=== PATIENT | female | born 1985 | race Caucasian/White ===

== ENCOUNTER 2023-12-14 07:39 | Inpatient (IN) ==
[2023-12-14] MEDS ORDERED: LIDOCAINE 1% LOCAL 20 ML VIAL INFIL PRN (07:47)
[2023-12-14] MEDS ORDERED: Patient's HEIGHT &/or WEIGHT Needed SCH (08:00)
--- NOTE | 2023-12-14 08:01 | History & Physical Report ---
Date of Service December 14, 2023 Assessment & Plan (1) Insulin controlled gestational diabetes mellitus (GDM) during : (2) Need for rhogam due to Rh negative mother: (3) Carrier of group B Streptococcus: (4) Hepatitis C virus infection cured after antiviral drug therapy: (5) Encounter for induction of labor: Plan 38yo at 39 weeks of gestational here for induction of labor - GBS +: abx intrapartum - Pitocin as protocol - Epidural when requested - BTG: A- [place] post delivery - Arom if need it - FHT: category 1 - Anticipate Admission and Anticipated Discharge Date Admission Date: December 14, 2023 History of Present Illness Primary Care Provider: NO PCP 38yo at 39 weeks of gestational. Here for induction of labor. Melgoza bulb was placed last night. Complications with this include GDM ins ulin controlled, LGA, AMA, hx of hepatitis C, suspected LGA. Has been attending OB appointments regularly. Currently taking no medications. GBS +, Rubella immune, BTG: A- Contractions: none. Fluid or Blood loss: none Movement: active FHR baseline 145, moderate variability, accelerations present, decelerations absent OB Labs: Blood Type A Negative 05/14/23 Antibody Screen NEGATIVE 09/28/23 Hemoglobin 11.8 g/dl (12.0-16.0) L 09/28/23 Hematocrit 34.8 % (37.0-47.0) L 09/28/23 Mean Corpuscular Volume 89.2 fL (80.0-100.0) 05/14/23 Platelet Count 365 K/uL (130-400) 05/14/23 Rubella IgG Antibody Immune (Immune) 05/14/23 Rapid Plasma Reagin Nonreactive (Nonreactive) 05/14/23 Hepatitis B Surface Antigen. NON-REACTIVE (NON-REACTIVE) 05/14/23 Hepatitis C Antibody (EIA) REACTIVE (NON-REACTIVE) A 05/14/23 HIV (1&2) Ag and Ab Confirmation NON-REACTIVE (NON-REACTIVE) 05/14/23 Glucose 1 Hour 50 gm Load 232 mg/dl (70-130) H 07/10/23 OB Optional Labs: Chlamydia trachomatis RNA Not Detected (NotDetected) 05/14/23 Neisseria gonorrhoeae RNA Not Detected (NotDetected) 05/14/23 Labs Reviewed: Horizon 14-negative--mln Declines cfdna/quad screen--mln GBS positive. Allergies Allergy/AdvReac Type Severity Reaction Status Date / Time Penicillins Allergy Vomiting Verified 12/14/23 08:06 Home Medications Medication Instructions Recorded Confirmed Type vit 168-iron 27 mg-folic 1 cap PO DAILY 05/07/23 12/14/23 History acid 800 mcg-omega3 235 mg capsule (One-A-Day -1) acetone (urine) test (Ketone Urine #50 ea 08/11/23 12/11/23 Rx Test strips) blood sugar diagnostic (OneTouch #150 ea 08/11/23 12/11/23 Rx Verio test strips) blood-glucose meter (OneTouch #1 ea 08/11/23 12/11/23 Rx Verio Reflect Meter) lancets 33 gauge (OneTouch Delica #150 ea 08/11/23 12/11/23 Rx Plus Lancet) pen needle, diabetic 32 gauge x #150 ea 08/21/23 12/11/23 Rx 5/32" (BD Ultra-Fine Laurita Pen Needle) insulin NPH isoph U-100 human 100 46 unit subcut QPM 12/14/23 History unit/mL (3 mL) subcutaneous pen (Novolin N FlexPen) insulin lispro 100 unit/mL 36 unit subcut TID 12/14/23 History subcutaneous pen (Humalog KwikPen (U-100) Insulin) Patient History Medical History History of intravenous drug abuse last used in 2009. Hepatitis C virus infection cured after antiviral drug therapy Surgical History History of cryosurgery cryo of cervix at 18 Family History Mother Arthritis Social History (Updated 12/14/23 @ 08:06 by Rebekah Gutierrez RN) Smoking Status: Former smoker Tobacco Type: Cigarettes Age Quit Using Tobacco: 38 (have not smoked since 12 weeks); Smoking End Date: stopped smoking at approx 12 weeks.; Hx Alcohol Use: No Hx Substance Use: Yes Non-Prescribed Medications: Heroin Non-Prescribed Medications Comment: last used in 2009 Last Used Substance Other:: 2010 Substance Use Type Other:: history of IV drug use Preferred Language: Yi Carton Stapler Required: No Beliefs That Will Affect Care: None marital status: marital status details: Rivera (30) [phone] Current Living Situation: Spouse Current Living Situation Comment: lives with spouse , daughter, 1 dog, 1 cat, spouse to change litter current occupational status: unemployed Feels Safe at Home: Yes Safety Concerns: Feels Safe At This Time Review of Systems as per HPI Physical Exam Physical Exam: General: patient resting comfortably, NAD, non-toxic in appearance, AA&O x 4, answers questions appropriately. Skin: warm, dry, intact Heart: +S1/S2, regular, no m/r/g Lungs: equal air entry bilaterally, no rales/rhonchi/wheezes Abd: +BS, soft, NT/ND, gravid uterus Ext: warm, no clubbing/cyanosis or edema Neuro: nonfocal, patient AA&O x 4, speech intact, no facial droop, moving all extremities on command. Supervising Physician Co-Signing Physician Notes Patient presents at 39 weeks for iol for insulin requiring GDM and LGA. Melgoza placed last night. I removed with gentle traction this am. Notes some cramping. no lof/fb. +fm cx--3+/50/-2/soft/mid toco--hiral efm--150s wtih mod variability, small accels, no decels a/p--iol . Plan pit now. PCN for gbs--allergy is GI upset. After second dose, plan arom and epidural. Fetus category one. anticipate . Will check blood sugars hourly to keep between 80-120. Will institute diabetic protocol if indicated. 36 week scan showed ac in >98 and efw>98. she has successfully delivered a 6.5 # baby. discussed that we would not be instrumenting her baby. She will either push it out or will proceed with c/s . They express understanding. Resident Activity Tracking Resident Involvement: Resident Care Provided Care Provided: OB Delivery
[2023-12-14 08:28] LABS: Hematocrit (blood only) 33.2 % (37.0-47.0); Hemoglobin 11.1 g/dl (12.0-16.0); Mean Corpuscular Hemoglobin 29.3 pg (25.0-34.0); Mean Corpuscular Hgb Conc 33.4 g/dL (32.0-36.0); Mean Corpuscular Volume 87.6 fL (80.0-100.0); Mean Platelet Volume 9.6 fL (9.4-12.4); Platelet Count 281 K/uL (130-400); RDW Coefficient of Variation 13.2 % (11.5-14.5); Red Blood Count 3.79 M/uL (4.20-5.40); White Blood Count 7.55 K/ul (4.8-10.8)
[2023-12-14] MEDS ORDERED: SODIUM CHLORIDE 0.9% 1,000 ML IV PRN (08:55)
[2023-12-14] MEDS ORDERED: DEXTROSE 50% 50 ML SYRINGE IV PRN (08:55)
[2023-12-14] MEDS: LACTATED RINGER'S 1,000 ML IV PRN (09:44)
[2023-12-14] MEDS: PENICILLIN GK 6 MU in DEXTROSE 5% 250 ML IV STA (09:46)
[2023-12-14] MEDS: OXYTOCIN 30 UNITS/NSS 30 UNITS/500 ML BAG IV PRN (09:47)
[2023-12-14] MEDS: DEXTROSE 5% 1,000 ML IV PRN (10:06)
[2023-12-14] MEDS: INSULIN REGULAR 250 UNITS in SODIUM CHLORIDE 0.9% 247.5 ML IV PRN (10:07)
[2023-12-14] MEDS: PENICILLIN GK 3 MU in DEXTROSE 5% 100 ML IV PRN (13:40)
[2023-12-14] MEDS: fentANYL 2 MCG/ML BUPIVacaine 0.125%-NSS 100ML BAG ONE (14:42)
[2023-12-14] MEDS: SODIUM CHLORIDE 0.9% PF INJ 10 ML VIAL ONE (14:42)
[2023-12-14] MEDS: BUPIVACAINE 0.25% PF 30 ML VIAL ONE (14:42)
[2023-12-14] MEDS: LIDOCAINE 2%/EPINEPHRINE 1:200,000 20 ML PF ONE (14:42)
[2023-12-14] MEDS ORDERED: BUPIVACAINE 0.25% PF 30 ML VIAL EPI PRN (14:46)
[2023-12-14] MEDS ORDERED: ePHEDrine sulfate 50 MG/ML AMP IV PRN (14:46)
[2023-12-14] MEDS ORDERED: ROPIVACAINE 0.5% PF 5 MG/ML 20 ML VIAL EPI PRN (14:46)
[2023-12-14] MEDS ORDERED: fentaNYL citrate PF 100 MCG/2 ML VIAL EPI PRN (14:46)
[2023-12-14] MEDS ORDERED: NALOXONE HCL 1 MG in SODIUM CHLORIDE 0.9% 1,000 ML IV PRN (14:46)
[2023-12-14] MEDS ORDERED: NALBUPHINE HCL 5 MG in SYRINGE 0 ML IV PRN (14:46)
[2023-12-14] MEDS ORDERED: LIDOCAINE 2% MPF LOCAL 5 ML VIAL EPI PRN (14:46)
[2023-12-14] MEDS ORDERED: diphenhydrAMINE 50 MG/ML VIAL IV PRN (14:46)
[2023-12-14] MEDS ORDERED: ONDANSETRON INJ 2 MG/ML 2 ML VIAL IV PRN (14:46)
[2023-12-14] MEDS ORDERED: PROMETHAZINE HCL 6.25 MG in SODIUM CHLORIDE 0.9% 50 ML IV PRN (14:46)
[2023-12-14] MEDS ORDERED: SODIUM CHLORIDE 0.9% PF INJ 10 ML VIAL EPI PRN (14:46)
[2023-12-14] MEDS ORDERED: NALOXONE HCL 0.4 MG/1 ML VIAL/CARP IV PRN (14:46)
--- NOTE | 2023-12-14 14:46 | Anesthesiology Consultation ---
Date of Service December 14, 2023 Assessment & Plan Chart Review Chart Review: Patient NOT seen in Pre Admission Testing and Acceptable Risk for Labor Epidural Consults Requested none ASA ASA2 Proposed Anesthesia Anesthesia Type: Labor Epidural Risk / Benefits Reviewed With: PT / POA / Parent / Guardian, Accepts Plan and Informed Consent Obtained History Height/Weight Height: 5 ft 7 in Weight: 100.244 kg Allergies Allergy/AdvReac Type Severity Reaction Status Date / Time Penicillins Allergy Vomiting Verified 12/14/23 08:06 Medications Home Medications Medication Instructions Recorded Confirmed Last Taken vit 168-iron 27 mg-folic 1 cap PO DAILY 05/07/23 12/14/23 12/13/23 acid 800 mcg-omega3 235 mg capsule (One-A-Day -1) acetone (urine) test (Ketone Urine #50 ea 08/11/23 12/11/23 Unknown Test strips) blood sugar diagnostic (OneTouch #150 ea 08/11/23 12/11/23 Unknown Verio test strips) blood-glucose meter (OneTouch #1 ea 08/11/23 12/11/23 Unknown Verio Reflect Meter) lancets 33 gauge (OneTouch Delica #150 ea 08/11/23 12/11/23 Unknown Plus Lancet) pen needle, diabetic 32 gauge x #150 ea 08/21/23 12/11/23 Unknown 5/32" (BD Ultra-Fine Laurita Pen Needle) insulin NPH isoph U-100 human 100 46 unit subcut QPM 12/14/23 12/13/23 22:00 unit/mL (3 mL) subcutaneous pen (Novolin N FlexPen) insulin lispro 100 unit/mL 36 unit subcut TID 12/14/23 12/13/23 18:00 subcutaneous pen (Humalog KwikPen (U-100) Insulin) Active Medications Generic Name Dose Route Start Last Admin Trade Name Freq PRN Reason Stop Dose Admin Lactated Ringer's 1,000 mls @ 125 mls/hr 12/14/23 07:47 12/14/23 14:24 Lr IV 12/16/23 07:46 125 mls/hr .Q8H PRN Infusion L&D Protocol Protocol Penicillin G Potassium 3 mu/ 106 mls @ 100 mls/hr 12/14/23 11:48 12/14/23 13:40 Dextrose IV 12/24/23 11:47 100 mls/hr Q4H PRN Administration GBS(+) Until Delivery Oxytocin 30 units in 500 mls @ 10 mls/hr 12/14/23 08:47 12/14/23 13:15 Pitocin 30 Units/Nss IV 12/16/23 08:46 0.6 units/hr .Q24H PRN 10 mls/hr Labor Induction/Augmentation Titration Protocol 0.6 UNITS/HR Dextrose 1,000 mls @ 100 mls/hr 12/14/23 08:55 12/14/23 13:01 D5w IV 01/13/24 08:54 100 mls/hr .Q10H PRN Infusion BSG 180 or below Protocol Insulin Human Regular 250 250 mls @ 0.5 mls/hr 12/14/23 08:55 12/14/23 14:00 units/ Sodium Chloride IV 01/13/24 08:54 0.5 units/hr .Q24H PRN 0.5 mls/hr BSG 80mg/dL or ABOVE Titration Protocol Per Protocol Past Medical History Medical History History of intravenous drug abuse last used in 2009. Hepatitis C virus infection cured after antiviral drug therapy Exercise / Class Metabolic Activity II 4-5 Yardwork/Stairs/Walk up hill Past Family History Family History Mother Arthritis Past Surgical History Surgical History History of cryosurgery cryo of cervix at 18 Past Anesthesia History No Hx of Anesthesia Complications and No Family Hx of Anesthesia Complications History of PONV No Hx of PONV and No Hx of Motion Sickness Social History Smoking Status: Former smoker Smoking End Date: stopped smoking at approx 12 weeks. Hx Alcohol Use: No Hx Substance Use: Yes substance use type: does not use Substance Use Type Other:: history of IV drug use Last Used Substance Other:: 2009 Physical Exam Vital Signs Last Vital Signs Temp 36.6 C 12/14/23 11:00 Pulse 93 H 12/14/23 14:44 Resp 18 12/14/23 08:09 BP 113/63 12/14/23 14:44 Pulse Ox 99 06/03/24 14:41 ENMT Mouth: no dentition abnormality Thyromental Distance: > or= 3.5 Finger Breadths Mallampati Class: II Neck normal visual inspection Respiratory normal respiratory effort Auscultation: lungs clear to auscultation bilaterally Cardiovascular Rate/Rhythm: regular rate and regular rhythm Psychiatric Orientation: alert Testing Laboratory Results 12/14/23 07:57 Blood Type A Negative 12/14/23 07:57 Blood Type Cancelled 12/14/23 07:57 Antibody Screen Cancelled 12/14/23 07:57 Antibody Screen NEGATIVE 12/14/23 07:57 12/14/23 12/14/23 12/14/23 14:00 13:00 11:57 POC Glucose 95 94 103 H 12/14/23 12/14/23 12/14/23 11:01 10:02 08:53 POC Glucose 134 H 131 H 154 H
[2023-12-14] MEDS: fentaNYL citrate PF 100 MCG/2 ML VIAL ONE (15:01)
[2023-12-14] MEDS: LIDOCAINE 2%/EPINEPHRINE 1:200,000 20 ML PF EPI STA (15:08)
[2023-12-14] MEDS: fentaNYL citrate PF 100 MCG/2 ML VIAL EPI STA (15:08)
[2023-12-14] MEDS: BUPIVACAINE 0.25% PF 30 ML VIAL EPI STA (15:08)
[2023-12-14] MEDS: SODIUM CHLORIDE 0.9% PF INJ 10 ML VIAL EPI STA (15:08)
--- NOTE | 2023-12-14 15:34 | Labor Progress Brief Note ---
Date of Service December 14, 2023 Subjective comfortable after epidural Assessment & Plan (1) Encounter for induction of labor: (2) Insulin controlled gestational diabetes mellitus (GDM) during : (3) Carrier of group B Streptococcus: Plan continue current management. fetus category one. anticipate . Admission and Anticipated Discharge Date Admission Date: December 14, 2023 Physical Exam Physical Exam: cx--4/75/-2 arom--copious clear toco--q2-4, pit at 10 efm--140s with mod variability, accels to 160s, no decels Results & Data Vital Signs (Past 12 Hours) Vital Signs Temp Pulse Resp BP Pulse Ox 12/14/23 15:31 100 12/14/23 15:31 94 H 12/14/23 15:31 96 H 135/79 12/14/23 15:26 97 H 98 12/14/23 15:25 85 111/58 L 12/14/23 15:21 91 H 109/56 L 97 12/14/23 15:16 90 98 12/14/23 15:15 18 12/14/23 15:15 90 107/58 L 12/14/23 15:11 98 H 99 12/14/23 15:10 90 113/62 12/14/23 15:06 95 H 100 12/14/23 15:04 92 H 118/66 12/14/23 15:01 91 H 99 12/14/23 15:00 20 12/14/23 14:56 103 H 99 12/14/23 14:54 83 115/56 L 12/14/23 14:51 97 H 99 12/14/23 14:48 97 H 116/57 L 12/14/23 14:46 93 H 112/58 L 100 12/14/23 14:45 36.5 C 18 12/14/23 14:44 93 H 113/63 12/14/23 14:42 101 H 109/66 12/14/23 14:41 99 H 108/65 99 12/14/23 14:38 87 114/83 12/14/23 14:36 93 H 100 12/14/23 14:31 97 H 100 12/14/23 14:30 101 H 85 L 12/14/23 14:26 93 H 100 12/14/23 14:21 89 99 06/03/24 14:16 95 H 98 12/14/23 14:07 89 125/79 12/14/23 13:12 93 H 123/67 12/14/23 12:08 81 133/83 12/14/23 11:08 82 148/74 H 12/14/23 11:00 36.6 C 12/14/23 10:06 88 120/75 12/14/23 08:09 36.5 C 18 12/14/23 07:52 93 H 126/75 Coding Level of Care Code None Diagnoses Encounter for induction of labor Z34.90 Insulin controlled gestational diabetes mellitus (GDM) during O24.414 Carrier of group B Streptococcus Z22.330
[2023-12-14] MEDS: ePHEDrine sulfate 50 MG/ML AMP ONE (19:03)
--- NOTE | 2023-12-14 20:05 | Labor Progress Brief Note ---
Date of Service December 14, 2023 Subjective comfortable Assessment & Plan (1) Encounter for induction of labor: (2) Insulin controlled gestational diabetes mellitus (GDM) during : (3) Carrier of group B Streptococcus: Plan fetus category one. ctx do not appear adequate at this point, increase pitocin to achieve >200mvus. continue diabetic protocol. Admission and Anticipated Discharge Date Admission Date: December 14, 2023 Physical Exam Physical Exam: cx--4/80/-2 toco--q3-5 min, pit at 14, iupc placed efm--140s with mod variability, accels present, no decels Results & Data Vital Signs (Past 12 Hours) Vital Signs Temp Pulse Resp BP Pulse Ox 12/14/23 20:01 94 H 98 12/14/23 20:00 103 H 128/82 12/14/23 19:56 96 H 98 12/14/23 19:51 109 H 98 12/14/23 19:46 85 97 12/14/23 19:45 86 131/74 12/14/23 19:41 85 98 12/14/23 19:36 90 98 12/14/23 19:31 99 H 97 12/14/23 19:30 92 H 133/72 12/14/23 19:26 83 98 12/14/23 19:21 97 H 98 12/14/23 19:16 89 99 12/14/23 19:15 93 H 125/82 12/14/23 19:11 100 H 99 12/14/23 19:06 36.8 C 18 12/14/23 19:06 86 100 12/14/23 19:01 99 12/14/23 19:01 101 H 12/14/23 19:01 95 H 130/86 12/14/23 18:56 99 H 98 12/14/23 18:54 106 H 94 12/14/23 18:51 93 H 98 12/14/23 18:46 106 H 98 12/14/23 18:45 90 128/79 12/14/23 18:41 95 H 98 12/14/23 18:36 91 H 97 12/14/23 18:31 90 98 12/14/23 18:30 104 H 20 118/78 12/14/23 18:26 88 98 12/14/23 18:21 97 H 99 12/14/23 18:16 93 H 98 06/03/24 18:15 95 H 126/84 12/14/23 18:11 93 H 99 12/14/23 18:06 90 98 12/14/23 18:05 94 H 91 12/14/23 18:01 95 H 99 12/14/23 18:00 89 20 128/79 12/14/23 17:56 89 99 12/14/23 17:51 108 H 98 12/14/23 17:46 100 H 129/75 99 12/14/23 17:41 98 H 99 12/14/23 17:36 92 H 98 12/14/23 17:31 91 H 99 12/14/23 17:30 100 H 20 128/69 12/14/23 17:26 88 99 12/14/23 17:21 88 98 12/14/23 17:16 97 H 99 12/14/23 17:15 101 H 154/70 H 12/14/23 17:11 87 99 12/14/23 17:06 94 H 98 12/14/23 17:01 91 H 99 12/14/23 17:00 18 12/14/23 17:00 36.8 C 18 12/14/23 16:59 89 123/68 12/14/23 16:56 88 97 12/14/23 16:51 88 96 12/14/23 16:46 87 95 12/14/23 16:44 88 122/68 12/14/23 16:41 87 97 12/14/23 16:36 86 97 12/14/23 16:31 86 98 12/14/23 16:30 87 20 119/64 12/14/23 16:26 87 98 12/14/23 16:21 83 98 12/14/23 16:16 89 98 12/14/23 16:14 97 H 120/63 12/14/23 16:11 95 H 98 12/14/23 16:06 89 100 12/14/23 16:01 92 H 99 12/14/23 16:00 84 20 126/68 12/14/23 15:56 96 H 99 12/14/23 15:55 89 122/68 12/14/23 15:51 92 H 99 12/14/23 15:50 93 H 123/71 12/14/23 15:46 94 H 100 12/14/23 15:45 91 H 18 121/64 12/14/23 15:41 97 H 99 12/14/23 15:39 102 H 121/73 12/14/23 15:36 87 100 12/14/23 15:35 99 H 146/91 H 12/14/23 15:31 100 12/14/23 15:31 94 H 12/14/23 15:31 96 H 135/79 12/14/23 15:30 20 12/14/23 15:30 20 12/14/23 15:26 97 H 98 12/14/23 15:25 85 111/58 L 12/14/23 15:21 91 H 109/56 L 97 12/14/23 15:16 90 98 12/14/23 15:15 18 12/14/23 15:15 90 107/58 L 12/14/23 15:11 98 H 99 12/14/23 15:10 90 113/62 12/14/23 15:06 95 H 100 12/14/23 15:04 92 H 118/66 12/14/23 15:01 91 H 99 12/14/23 15:00 20 12/14/23 14:56 103 H 99 12/14/23 14:54 83 115/56 L 12/14/23 14:51 97 H 99 12/14/23 14:48 97 H 116/57 L 12/14/23 14:46 93 H 112/58 L 100 12/14/23 14:45 36.5 C 18 12/14/23 14:44 93 H 113/63 12/14/23 14:42 101 H 109/66 12/14/23 14:41 99 H 108/65 99 12/14/23 14:38 87 114/83 12/14/23 14:36 93 H 100 12/14/23 14:31 97 H 100 12/14/23 14:30 101 H 85 L 12/14/23 14:26 93 H 100 12/14/23 14:21 89 99 12/14/23 14:16 95 H 98 12/14/23 14:07 89 125/79 12/14/23 13:12 93 H 123/67 12/14/23 12:08 81 133/83 12/14/23 11:08 82 148/74 H 06/03/24 11:00 36.6 C 06/03/24 10:06 88 120/75 12/14/23 08:09 36.5 C 18 Coding Level of Care Code None Diagnoses Encounter for induction of labor Z34.90 Insulin controlled gestational diabetes mellitus (GDM) during O24.414 Carrier of group B Streptococcus Z22.330
[2023-12-14] MEDS: fentANYL 2 MCG/ML BUPIVacaine 0.125%-NSS 100ML BAG EPI PRN (21:10)
--- NOTE | 2023-12-15 01:10 | Labor Progress Brief Note ---
Date of Service December 15, 2023 Subjective noting pressure Assessment & Plan (1) Encounter for induction of labor: (2) Insulin controlled gestational diabetes mellitus (GDM) during : (3) Carrier of group B Streptococcus: Plan continue current management. fetus category two because of variables, but early in presentation and good variability. Will continue to reposition and recheck in about an hour. hoping for , but some concerns not descending alot and the variable/earlies and not pushing yet. Will continue to monitor closely. Admission and Anticipated Discharge Date Admission Date: December 14, 2023 Physical Exam Physical Exam: cx--/-1 toco--q2-3 min, pit at 24, adequate contractions efm--140s with mod variability, small accels, early/variables with contractions now. Results & Data Vital Signs (Past 12 Hours) Vital Signs Temp Pulse Resp BP Pulse Ox 12/15/23 01:06 102 H 98 12/15/23 01:01 102 H 99 12/15/23 00:59 96 H 141/82 H 12/15/23 00:56 97 H 99 12/15/23 00:51 94 H 98 12/15/23 00:46 98 H 99 12/15/23 00:44 93 H 134/81 12/15/23 00:41 101 H 98 12/15/23 00:36 102 H 99 12/15/23 00:31 107 H 99 12/15/23 00:29 101 H 129/75 12/15/23 00:26 102 H 99 12/15/23 00:21 111 H 99 12/15/23 00:16 106 H 98 12/15/23 00:15 94 H 131/72 12/15/23 00:11 88 99 12/15/23 00:06 96 H 96 12/15/23 00:01 95 H 126/96 98 12/14/23 23:57 18 12/14/23 23:57 37.3 C 18 12/14/23 23:56 105 H 96 12/14/23 23:51 90 99 12/14/23 23:46 99 H 100 12/14/23 23:45 96 H 133/79 12/14/23 23:41 90 99 12/14/23 23:36 100 H 97 12/14/23 23:31 99 12/14/23 23:31 110 H 12/14/23 23:31 101 H 131/79 12/14/23 23:26 87 97 12/14/23 23:21 100 H 98 12/14/23 23:16 107 H 97 12/14/23 23:14 96 H 123/78 12/14/23 23:11 94 H 98 12/14/23 23:06 94 H 98 12/14/23 23:03 113 H 81 L 12/14/23 23:01 36.9 C 101 H 16 100 12/14/23 23:00 95 H 119/72 12/14/23 22:56 96 H 99 12/14/23 22:51 97 H 98 12/14/23 22:46 97 H 118/58 L 98 12/14/23 22:41 101 H 98 12/14/23 22:36 93 H 97 12/14/23 22:31 98 H 98 12/14/23 22:30 96 H 118/60 12/14/23 22:26 89 98 12/14/23 22:21 98 H 98 12/14/23 22:16 92 H 98 12/14/23 22:15 100 H 113/63 12/14/23 22:11 96 H 98 12/14/23 22:06 99 H 98 12/14/23 22:01 105 H 98 12/14/23 22:00 100 H 117/68 12/14/23 21:56 101 H 99 12/14/23 21:51 100 H 98 12/14/23 21:46 97 H 97 12/14/23 21:45 100 H 108/60 12/14/23 21:41 91 H 97 12/14/23 21:36 96 H 97 12/14/23 21:31 95 H 98 12/14/23 21:30 98 H 115/62 12/14/23 21:26 98 H 98 12/14/23 21:21 100 H 98 12/14/23 21:16 96 H 98 12/14/23 21:15 98 H 115/63 12/14/23 21:11 96 H 98 12/14/23 21:06 90 99 12/14/23 21:03 18 12/14/23 21:03 36.5 C 18 12/14/23 21:01 93 H 98 12/14/23 20:59 99 H 122/72 06/03/24 20:56 91 H 98 12/14/23 20:51 89 98 12/14/23 20:46 96 H 98 12/14/23 20:45 90 115/64 12/14/23 20:41 93 H 97 12/14/23 20:36 95 H 98 12/14/23 20:31 92 H 99 12/14/23 20:30 93 H 116/59 L 12/14/23 20:26 93 H 97 12/14/23 20:21 92 H 96 12/14/23 20:16 97 12/14/23 20:16 89 12/14/23 20:16 90 124/56 L 12/14/23 20:11 92 H 98 12/14/23 20:06 95 H 98 12/14/23 20:01 94 H 98 12/14/23 20:00 103 H 128/82 12/14/23 19:56 96 H 98 12/14/23 19:51 109 H 98 12/14/23 19:46 85 97 12/14/23 19:45 86 131/74 12/14/23 19:41 85 98 12/14/23 19:36 90 98 12/14/23 19:31 99 H 97 12/14/23 19:30 92 H 133/72 12/14/23 19:26 83 98 12/14/23 19:21 97 H 98 12/14/23 19:16 89 99 12/14/23 19:15 93 H 125/82 12/14/23 19:11 100 H 99 12/14/23 19:06 36.8 C 18 12/14/23 19:06 86 100 12/14/23 19:01 99 12/14/23 19:01 101 H 12/14/23 19:01 95 H 130/86 12/14/23 18:56 99 H 98 12/14/23 18:54 106 H 94 12/14/23 18:51 93 H 98 12/14/23 18:46 106 H 98 12/14/23 18:45 90 128/79 12/14/23 18:41 95 H 98 12/14/23 18:36 91 H 97 12/14/23 18:31 90 98 12/14/23 18:30 104 H 20 118/78 12/14/23 18:26 88 98 06/03/24 18:21 97 H 99 12/14/23 18:16 93 H 98 12/14/23 18:15 95 H 126/84 12/14/23 18:11 93 H 99 12/14/23 18:06 90 98 12/14/23 18:05 94 H 91 12/14/23 18:01 95 H 99 12/14/23 18:00 89 20 128/79 12/14/23 17:56 89 99 12/14/23 17:51 108 H 98 12/14/23 17:46 100 H 129/75 99 12/14/23 17:41 98 H 99 12/14/23 17:36 92 H 98 12/14/23 17:31 91 H 99 12/14/23 17:30 100 H 20 128/69 12/14/23 17:26 88 99 12/14/23 17:21 88 98 12/14/23 17:16 97 H 99 12/14/23 17:15 101 H 154/70 H 12/14/23 17:11 87 99 12/14/23 17:06 94 H 98 12/14/23 17:01 91 H 99 12/14/23 17:00 18 12/14/23 17:00 36.8 C 18 12/14/23 16:59 89 123/68 12/14/23 16:56 88 97 12/14/23 16:51 88 96 12/14/23 16:46 87 95 12/14/23 16:44 88 122/68 12/14/23 16:41 87 97 12/14/23 16:36 86 97 12/14/23 16:31 86 98 12/14/23 16:30 87 20 119/64 12/14/23 16:26 87 98 12/14/23 16:21 83 98 12/14/23 16:16 89 98 12/14/23 16:14 97 H 120/63 12/14/23 16:11 95 H 98 12/14/23 16:06 89 100 12/14/23 16:01 92 H 99 12/14/23 16:00 84 20 126/68 12/14/23 15:56 96 H 99 12/14/23 15:55 89 122/68 12/14/23 15:51 92 H 99 12/14/23 15:50 93 H 123/71 12/14/23 15:46 94 H 100 12/14/23 15:45 91 H 18 121/64 12/14/23 15:41 97 H 99 12/14/23 15:39 102 H 121/73 12/14/23 15:36 87 100 12/14/23 15:35 99 H 146/91 H 12/14/23 15:31 100 12/14/23 15:31 94 H 12/14/23 15:31 96 H 135/79 12/14/23 15:30 20 12/14/23 15:30 20 12/14/23 15:26 97 H 98 12/14/23 15:25 85 111/58 L 12/14/23 15:21 91 H 109/56 L 97 12/14/23 15:16 90 98 12/14/23 15:15 18 12/14/23 15:15 90 107/58 L 12/14/23 15:11 98 H 99 12/14/23 15:10 90 113/62 12/14/23 15:06 95 H 100 12/14/23 15:04 92 H 118/66 12/14/23 15:01 91 H 99 12/14/23 15:00 20 12/14/23 14:56 103 H 99 12/14/23 14:54 83 115/56 L 12/14/23 14:51 97 H 99 12/14/23 14:48 97 H 116/57 L 12/14/23 14:46 93 H 112/58 L 100 12/14/23 14:45 36.5 C 18 12/14/23 14:44 93 H 113/63 12/14/23 14:42 101 H 109/66 12/14/23 14:41 99 H 108/65 99 12/14/23 14:38 87 114/83 12/14/23 14:36 93 H 100 12/14/23 14:31 97 H 100 12/14/23 14:30 101 H 85 L 12/14/23 14:26 93 H 100 12/14/23 14:21 89 99 12/14/23 14:16 95 H 98 12/14/23 14:07 89 125/79 12/14/23 13:12 93 H 123/67 Coding Level of Care Code None Diagnoses Encounter for induction of labor Z34.90 Insulin controlled gestational diabetes mellitus (GDM) during O24.414 Carrier of group B Streptococcus Z22.330
--- NOTE | 2023-12-15 03:15 | Labor Progress Brief Note ---
Date of Service December 15, 2023 Subjective pushing with good effort Assessment & Plan (1) Encounter for induction of labor: Plan Pushing now for 1hour. I have been with the patient for 40 minutes. I do not appreciate much if any descent. Have left the room for a few minutes and will return to recheck. Concern for cpd. Fetus overall reassuring. Admission and Anticipated Discharge Date Admission Date: December 14, 2023 Physical Exam Physical Exam: c/c/+1, caput visible but the true head is still behind the pubic symphysis, narrow symphysis toco--q2min, pit at 24 efm--130s wtih mod variability, accels present, variables with some contractions Results & Data Vital Signs (Past 12 Hours) Vital Signs Temp Pulse Resp BP Pulse Ox 12/15/23 03:11 118 H 95 12/15/23 03:07 131 H 90 12/15/23 03:06 119 H 95 12/15/23 03:01 141 H 94 12/15/23 03:00 115 H 128/64 12/15/23 02:56 116 H 78 L 12/15/23 02:54 116 H 91 12/15/23 02:51 119 H 95 12/15/23 02:47 22 12/15/23 02:47 37.5 C 22 12/15/23 02:46 122 H 95 12/15/23 02:45 115 H 136/61 12/15/23 02:41 119 H 82 L 12/15/23 02:36 119 H 96 12/15/23 02:31 128 H 96 12/15/23 02:27 120 H 94 12/15/23 02:26 119 H 98 12/15/23 02:21 118 H 98 12/15/23 02:16 129 H 100 12/15/23 02:11 111 H 98 12/15/23 02:10 116 H 93 12/15/23 02:06 110 H 99 12/15/23 02:01 112 H 99 12/15/23 02:00 109 H 121/67 12/15/23 01:56 107 H 97 12/15/23 01:51 102 H 96 12/15/23 01:46 104 H 97 12/15/23 01:45 103 H 116/63 12/15/23 01:41 102 H 98 12/15/23 01:36 103 H 97 12/15/23 01:31 102 H 97 12/15/23 01:30 99 H 119/56 L 12/15/23 01:26 100 H 98 12/15/23 01:21 100 H 99 12/15/23 01:16 99 12/15/23 01:16 97 H 12/15/23 01:16 96 H 112/56 L 12/15/23 01:11 99 H 99 12/15/23 01:06 102 H 98 12/15/23 01:01 102 H 99 12/15/23 00:59 96 H 141/82 H 12/15/23 00:56 97 H 99 12/15/23 00:51 94 H 98 12/15/23 00:46 98 H 99 12/15/23 00:44 93 H 134/81 12/15/23 00:41 101 H 98 12/15/23 00:36 102 H 99 12/15/23 00:31 107 H 99 12/15/23 00:29 101 H 129/75 12/15/23 00:26 102 H 99 12/15/23 00:21 111 H 99 12/15/23 00:16 106 H 98 12/15/23 00:15 94 H 131/72 12/15/23 00:11 88 99 12/15/23 00:06 96 H 96 12/15/23 00:01 95 H 126/96 98 12/14/23 23:57 18 12/14/23 23:57 37.3 C 18 12/14/23 23:56 105 H 96 12/14/23 23:51 90 99 12/14/23 23:46 99 H 100 12/14/23 23:45 96 H 133/79 12/14/23 23:41 90 99 12/14/23 23:36 100 H 97 12/14/23 23:31 99 12/14/23 23:31 110 H 12/14/23 23:31 101 H 131/79 12/14/23 23:26 87 97 12/14/23 23:21 100 H 98 12/14/23 23:16 107 H 97 12/14/23 23:14 96 H 123/78 12/14/23 23:11 94 H 98 12/14/23 23:06 94 H 98 12/14/23 23:03 113 H 81 L 12/14/23 23:01 36.9 C 101 H 16 100 12/14/23 23:00 95 H 119/72 12/14/23 22:56 96 H 99 12/14/23 22:51 97 H 98 12/14/23 22:46 97 H 118/58 L 98 12/14/23 22:41 101 H 98 12/14/23 22:36 93 H 97 12/14/23 22:31 98 H 98 12/14/23 22:30 96 H 118/60 12/14/23 22:26 89 98 12/14/23 22:21 98 H 98 12/14/23 22:16 92 H 98 12/14/23 22:15 100 H 113/63 12/14/23 22:11 96 H 98 12/14/23 22:06 99 H 98 12/14/23 22:01 105 H 98 12/14/23 22:00 100 H 117/68 12/14/23 21:56 101 H 99 12/14/23 21:51 100 H 98 12/14/23 21:46 97 H 97 12/14/23 21:45 100 H 108/60 12/14/23 21:41 91 H 97 12/14/23 21:36 96 H 97 12/14/23 21:31 95 H 98 12/14/23 21:30 98 H 115/62 12/14/23 21:26 98 H 98 12/14/23 21:21 100 H 98 12/14/23 21:16 96 H 98 12/14/23 21:15 98 H 115/63 12/14/23 21:11 96 H 98 12/14/23 21:06 90 99 12/14/23 21:03 18 12/14/23 21:03 36.5 C 18 12/14/23 21:01 93 H 98 12/14/23 20:59 99 H 122/72 12/14/23 20:56 91 H 98 12/14/23 20:51 89 98 12/14/23 20:46 96 H 98 12/14/23 20:45 90 115/64 12/14/23 20:41 93 H 97 12/14/23 20:36 95 H 98 12/14/23 20:31 92 H 99 12/14/23 20:30 93 H 116/59 L 12/14/23 20:26 93 H 97 12/14/23 20:21 92 H 96 12/14/23 20:16 97 12/14/23 20:16 89 12/14/23 20:16 90 124/56 L 12/14/23 20:11 92 H 98 12/14/23 20:06 95 H 98 12/14/23 20:01 94 H 98 12/14/23 20:00 103 H 128/82 12/14/23 19:56 96 H 98 12/14/23 19:51 109 H 98 12/14/23 19:46 85 97 12/14/23 19:45 86 131/74 12/14/23 19:41 85 98 12/14/23 19:36 90 98 12/14/23 19:31 99 H 97 12/14/23 19:30 92 H 133/72 12/14/23 19:26 83 98 12/14/23 19:21 97 H 98 12/14/23 19:16 89 99 12/14/23 19:15 93 H 125/82 12/14/23 19:11 100 H 99 12/14/23 19:06 36.8 C 18 12/14/23 19:06 86 100 12/14/23 19:01 99 12/14/23 19:01 101 H 12/14/23 19:01 95 H 130/86 12/14/23 18:56 99 H 98 12/14/23 18:54 106 H 94 12/14/23 18:51 93 H 98 12/14/23 18:46 106 H 98 12/14/23 18:45 90 128/79 12/14/23 18:41 95 H 98 12/14/23 18:36 91 H 97 12/14/23 18:31 90 98 12/14/23 18:30 104 H 20 118/78 12/14/23 18:26 88 98 12/14/23 18:21 97 H 99 12/14/23 18:16 93 H 98 12/14/23 18:15 95 H 126/84 12/14/23 18:11 93 H 99 12/14/23 18:06 90 98 12/14/23 18:05 94 H 91 12/14/23 18:01 95 H 99 12/14/23 18:00 89 20 128/79 12/14/23 17:56 89 99 12/14/23 17:51 108 H 98 12/14/23 17:46 100 H 129/75 99 12/14/23 17:41 98 H 99 12/14/23 17:36 92 H 98 12/14/23 17:31 91 H 99 12/14/23 17:30 100 H 20 128/69 12/14/23 17:26 88 99 12/14/23 17:21 88 98 12/14/23 17:16 97 H 99 12/14/23 17:15 101 H 154/70 H 12/14/23 17:11 87 99 12/14/23 17:06 94 H 98 12/14/23 17:01 91 H 99 12/14/23 17:00 18 12/14/23 17:00 36.8 C 18 12/14/23 16:59 89 123/68 12/14/23 16:56 88 97 12/14/23 16:51 88 96 12/14/23 16:46 87 95 12/14/23 16:44 88 122/68 12/14/23 16:41 87 97 12/14/23 16:36 86 97 12/14/23 16:31 86 98 12/14/23 16:30 87 20 119/64 12/14/23 16:26 87 98 12/14/23 16:21 83 98 12/14/23 16:16 89 98 12/14/23 16:14 97 H 120/63 12/14/23 16:11 95 H 98 12/14/23 16:06 89 100 12/14/23 16:01 92 H 99 12/14/23 16:00 84 20 126/68 12/14/23 15:56 96 H 99 12/14/23 15:55 89 122/68 12/14/23 15:51 92 H 99 12/14/23 15:50 93 H 123/71 12/14/23 15:46 94 H 100 12/14/23 15:45 91 H 18 121/64 12/14/23 15:41 97 H 99 12/14/23 15:39 102 H 121/73 12/14/23 15:36 87 100 12/14/23 15:35 99 H 146/91 H 12/14/23 15:31 100 06/03/24 15:31 94 H 12/14/23 15:31 96 H 135/79 12/14/23 15:30 20 12/14/23 15:30 20 12/14/23 15:26 97 H 98 12/14/23 15:25 85 111/58 L 12/14/23 15:21 91 H 109/56 L 97 12/14/23 15:16 90 98 12/14/23 15:15 18 12/14/23 15:15 90 107/58 L Coding Level of Care Code None Diagnoses Encounter for induction of labor Z34.90
[2023-12-15] MEDS: OXYTOCIN 30 UNITS/NSS 30 UNITS/500 ML BAG IV PRN (04:21)
[2023-12-15] MEDS ORDERED: bisacodyL 10 MG SUPP PR PRN (04:23)
[2023-12-15] MEDS ORDERED: HYDROCORTISONE ACETATE 25 MG SUPP PR PRN (04:23)
[2023-12-15] MEDS ORDERED: OXYTOCIN 30 UNITS/NSS 30 UNITS/500 ML BAG IV PRN (04:23)
--- NOTE | 2023-12-15 04:24 | Delivery Summary ---
Vaginal Delivery Summary Date of Service December 15, 2023 Vaginal Delivery Summary and 1st Degree LAC Pre-operative Diagnosis: at 39 weeks insulin requiring GDM GBS positive suspected lga Post-operative Diagnosis: same Procedure: pitocin induction pcn for GBS prophylaxis epidural arom iupc left labial laceration and repair EBL: 188cc Anesthesia: epidural Procedure: The patient presented to labor and delivery for iol. STarted with pitocin and pcn for GBS. She then got an epidural and then arom for clear fluid. An IUPC was eventually placed and pitocin increased until adequate contractions were obtained. She then progressed to c/c/+1. The patient pushed for about an hour and 45 minutes to deliver a viable male in richard position. A loose nuchal cord was reduced and the anterior shoulder was immediately delivered with ease. The rest of the was then delivered. The baby was floppy. The Cord was immediately clamped and cut and the was handed off to the awaiting nursing team. Cord blood and segment obtained. Placenta delivered spontaneous, intact with a three vessel cord. Cervix/sulci/rectum/perineum were intact. A small left labial laceration was repaired in the normal standard fashion. Hemostasis obtained with dilute pitocin and fundal massage. Apgars were 3/8. Mother doing well at the end of the delivery. The baby was transferred to the nursery for evaluation. [facility] [place] Vaginal Delivery Charge Delivery Type Details: and 1st Degree LAC
[2023-12-15] MEDS: IBUPROFEN 600 MG TAB PO ONE (04:25)
[2023-12-15] MEDS: DIPHTHER/TETAN/PERTUS Vaccine (Tdap, Adol/Adult) 0.5mL IM ONE (04:52)
[2023-12-15 05:10] LABS: Base Excess Cord Venous Blood -7.4 mEq/L (-7.7-1.9); Cord Venous Blood HCO3 20 mmol/L (18.4-26.8); Cord Venous Blood PCO2 45 mmHg (30.4-57.2); Cord Venous Blood PO2 30 mmHg (14.1-43.3); Cord Venous Blood pH 7.25 (7.20-7.44); O2 Saturation Cord Venous Bld < 60.0 % (<68)
[2023-12-15 05:11] LABS: Base Excess Cord Arterial Bld -9.7 mEq/L (-9-1.8); CO2 Cord Arterial Blood 78 mmHg (39.1-73.5); HCO3 Cord Arterial Blood 22 mmol/L (19.7-28.5); Oxygen Sat Cord Arterial Blood < 60.0 % (<60); PO2 Cord Arterial Blood < 20 mmHg (4.1-31.7); pH Cord Arterial Blood 7.06 (7.1-7.38)
--- NOTE | 2023-12-15 08:05 | Anesthesia Procedure Note ---
Date of Service December 15, 2023 Anesthesia Post Epidural Note Vital Signs Vital Signs: Temp Pulse Resp BP Pulse Ox 99.1 F 86 20 128/77 94 12/15/23 07:05 12/15/23 07:35 12/15/23 07:05 12/15/23 07:35 12/15/23 04:09 Pain Intensity Episiotomy/Laceration: Pain Intensity: 3 Neck: Pain Intensity: 5 Notes Mental Status: alert / awake / arousable and participated in evaluation Nausea / Vomiting: adequately controlled Pain: adequately controlled Airway Patency, RR, SpO2: stable & adequate BP & HR: stable & adequate Hydration State: stable & adequate Neuraxial Anesthesia: was administered and sensory block is resolving Anesthetic Complications: no major complications apparent and Pt Satisfied with anesthetic care Epidural: Removed without complications and With tip intact
[2023-12-15] MEDS: PRENATAL VITAMIN 1 TAB PO SCH (08:25)
[2023-12-15] MEDS: IBUPROFEN 600 MG TAB PO PRN (08:25)
[2023-12-15] MEDS: DOCUSATE SODIUM 100 MG CAP PO SCH (08:25)
[2023-12-15] MEDS: ACETAMINOPHEN 325 MG TAB PO PRN (09:47)
[2023-12-15] MEDS: BENZOCAINE 20% SPRY 85 APPLN/85 GM CAN EXT PRN (09:47)
[2023-12-15] MEDS: oxyCODONE/ACETAMINOPHEN 5mg/325mg TAB PO PRN (16:05)
[2023-12-16 06:35] LABS: Hematocrit (blood only) 29.8 % (37.0-47.0); Hemoglobin 9.8 g/dl (12.0-16.0)
--- NOTE | 2023-12-16 06:44 | Obstetrical Progress Note ---
Date of Service December 16, 2023 Assessment & Plan (1) Encounter for care and examination after delivery: Plan 38 yo PPD#1 s/p Feels well today Encourage ambulation Vial signs reviewed Encourage Rubella immune, BGT: A- Continue post care Discharge home today, instructions reviewed. Follow up in 6 weeks in office Admission and Anticipated Discharge Date Admission Date: December 14, 2023 Supervising Physician Co-Signing Physician Notes Patient seen with resident and agree with the above findings and plan. Doing well and stable for discharge Subjective 38 yo post- day 1 s/p Ambulation: ambulating normally Voiding: no voiding problems Passing Gas:: Yes Diet Tolerance:: regular diet Lochia:: Small Feeding Type: breast feeding Current Pain Level: mild Resting comfortably this AM in NAD. Denies ALBRIGHT, CP, SOB, N/V/D, LE pain/swelling. Review of Systems Review of Systems: as per hpi Physical Exam Physical Exam: General: patient resting comfortably, NAD, non-toxic in appearance, AA&O x 4, answers questions appropriately. Heart: +S1/S2, regular, no m/r/g Lungs: equal air entry bilaterally, no rales/rhonchi/wheezes Abd: +BS, soft, NT/ND, uterine fundus firm at umbilicus Ext: warm, no clubbing/cyanosis or edema, Karoline's neg. Neuro: nonfocal, patient AA&O x 4, speech intact, no facial droop, moving all extremities on command. Results & Data Vital Signs (Past 12 Hours) Vital Signs Temp Pulse Resp BP Pulse Ox O2 Del Method 12/16/23 00:05 36.3 C L 91 H 18 143/74 H 99 Room Air 12/15/23 20:32 36.4 C L 87 20 134/79 97 Room Air Resident Activity Tracking Resident Involvement: Resident Care Provided Care Provided: OB Delivery
[2023-12-16] MEDS ORDERED: bisacodyL 5 MG TABEC PO SCH (20:00)
== END 2023-12-16 13:00 | disposition home or self-care (01) | DRG 807 ==
LOC: 4S1 07:39 → 4E2 12-15 09:01